=== PATIENT | female | born 1985 | race Caucasian/White ===

== ENCOUNTER 2016-11-29 16:53 | Outpatient (CLI) | payer MEDICAID ==
--- NOTE | 2016-11-29 17:14 | QN ---
Documentation Comment iup 20 weeks s/p fall and gash on head vss +FHT no ob synmptoms a/p iup 20 weeks to ER for head evaluation \ JENNIFER RIDER MD November 29, 2016 17:14
--- NOTE | 2016-11-29 17:22 | TRIAGE ---
OB Triage Datetime Report Generated by CPN: 11/29/2016 17:22 Datetime: 11/29/2016 16:40 Time of Arrival: 11/29/2016 16:40 Arrived By: Ambulance Arrived From: Home Chief Complaint: PT CAME IN VIA AMBULANCE BECAUSE SHE FAITED IN THE CAR WASH AND HIT HER HEAD IN T HE CONCRETE MAKING A LACERATION ON HER HEAD. BLOOD NOTED DOWN HER HEAD, NECK FACE AND BODY Movement: Present Contractions: Denies/Absent Rupture of Membranes: Denies Vaginal Discharge: Denies Recent Sexual Intercouse: Denies Abdominal Trauma: Not Applicable Additional Patient Complaints: NONE Time Provider Notified: 11/29/2016 17:10 Provider Notified: TERESO Initial Plan: NST THEN DOWN TO ER
[2016-11-29] MEDS ORDERED: ACET500C5 PO (20:19)
[2016-11-29] MEDS ORDERED: FER325 PO (20:19)
== END 2016-11-29 17:10 | disposition home or self-care (01) ==
LOC: OBT 16:53 → L-D 16:54 → OBT 17:10
PROVIDERS: ATTEND Obstetrics & Gynecology
DX: O26.892 Other specified pregnancy related conditions, second trimester (principal); W19.XXXA Unspecified fall, initial encounter; Y92.9 Unspecified place or not applicable; Z3A.20 20 weeks gestation of pregnancy
CPT/HCPCS: G0463

== ENCOUNTER 2016-11-29 17:15 | Emergency (ER) | payer MEDICAID, OTHER ==
[~2016-11-29] VITALS: Ht 154.9 cm; Wt 70.0 kg
[2016-11-29 17:18] VITALS: Ht 154.9 cm; Wt 70.0 kg
[2016-11-29] MEDS ORDERED: ONDANSETRON 4 MG INJ IV STA (18:08)
[2016-11-29] MEDS ORDERED: ACETAMINOPHEN 325 MG TAB PO ONE (18:30)
[2016-11-29] MEDS ORDERED: SOD CHLORIDE 0.9% 1,000 ML IV ONE (18:30)
[2016-11-29 19:09] LABS: ADD SCAN DIFF NO
[2016-11-29 19:12] LABS: BASOPHILS % 0.2 % (0.0-2.0); EOSINOPHILS % 0.1 % (0.0-7.0); HEMATOCRIT 29.6 % (37.0-47.0); LYMPHOCYTES # 1.3 10^3/ul (0.8-2.9); LYMPHOCYTES % 8.1 % (15.0-51.0); MEAN CORPUSCULAR HEMOGLOBIN 31.9 pg (29.0-33.0); MEAN CORPUSCULAR HGB CONC 33.8 g/dl (32.0-37.0); MEAN CORPUSCULAR VOLUME 94.6 fl (82.0-101.0); MEAN PLATELET VOLUME 9.7 fl (7.4-10.4); MONOCYTE # 0.7 10^3/ul (0.3-0.9); MONOCYTES % 4.5 % (0.0-11.0); NEUTROPHIL # 13.5 10^3/ul (1.6-7.5); NEUTROPHILS % 85.1 % (39.0-77.0); PLATELET COUNT 195 10^3/UL (140-415); RED BLOOD COUNT 3.13 10^6/ul (4.20-5.40); RED CELL DISTRIBUTION WIDTH 13.4 % (11.5-14.5); WHITE BLOOD COUNT 15.9 10^3/ul (4.8-10.8)
[2016-11-29 19:21] LABS: CHLORIDE 104 mmol/L (97-110); POTASSIUM 3.7 mmol/L (3.5-5.1); SODIUM 138 mmol/L (135-144)
[2016-11-29 19:23] LABS: CREATININE 0.55 mg/dl (0.44-1.00)
[2016-11-29 19:24] LABS: ANION GAP 14 (8-16); BLOOD UREA NITROGEN 11 mg/dl (7-20); CALCIUM 9.9 mg/dl (8.4-10.2); CARBON DIOXIDE 24 mmol/L (21-31); GLUCOSE 131 mg/dl (70-220)
[2016-11-29 19:36] LABS: TROPONIN-I < 0.012 ng/ml (0.00-0.12)
[2016-11-29] MEDS ORDERED: FER325 PO (20:19)
[2016-11-29] MEDS ORDERED: ACET500C5 PO (20:19)
--- NOTE | 2016-11-29 20:57 | ERD ---
ER Documentation Chief Complaint Date/Time DATE: 11/29/16 TIME: 20:45 Chief Complaint clear by obgyn, 21 weeks s/p syncope, has neck pain HPI 31-year-old female is brought in by EMS for one episode of syncope. Patient was standing in line at the store when she "passed out". She fell onto the floor, and hit her head in the fall. Her son was with her at the time, and reports that she was out for about 5 seconds. Patient reports 3 episodes of vomiting while in the ambulance. Patient is 21 weeks , but did not have any nausea vomiting during her prior to today. She is reporting pain in the right side of her head, and the right neck. Patient stated that she drinks very small amount of water usually. Denies fever or chills. Denies abdominal pain or diarrhea. Denies chest pain or palpitations. Denies shortness of breath. Denies pelvic pain or vaginal bleeding. Patient was cleared by labor delivery before sent to the ER. ROS All systems reviewed and are negative except as per history of present illness. Medications Home Meds Active Scripts Ferrous Sulfate* (Ferrous Sulfate*) 325 Mg Tabec, 325 MG PO TID, #30 TAB Prov:GAMAL FORD. COREMAKER MACHINE 11/29/16 Acetaminophen* (Tylophen*) 500 Mg Capsule, 1 CAP PO Q6H Y for PAIN AND OR ELEVATED TEMP, #20 CAP Prov:GAMAL FORD. COREMAKER MACHINE 11/29/16 PMhx/Soc Medical and Surgical Hx: pt denies Medical Hx Physical Exam Vitals Vital Signs Date Time Temp Pulse Resp B/P Pulse Ox O2 Delivery O2 Flow Rate FiO2 11/29/16 20:59 98.6 92 18 106/77 99 Room Air 11/29/16 17:18 98.1 76 18 116/70 99 Physical Exam General: Well-developed, well-nourished, conscious and coherent, in no distress Skin: Warm and dry without rash, good texture and turgor Head: Normocephalic, 1.5 cm laceration noted in the right parietal region, without step-off. Eyes: Sclera and conjunctivae normal; pupils equal, round, and reactive to light; extraocular movements are intact Neck: Supple without meningismus or adenopathy. Carotids are equal. Trachea midline. No bruits or JVD. Right sternocleidomastoid spasm noted. Chest: Normal AP diameter. Good expansion without retractions. Nontender. Lungs are clear to auscultate bilaterally with good tidal volume Heart: Regular rate and rhythm. No murmur, rub, or gallops heard Abdomen: Soft and nontender without masses, guarding, or rebound. Bowel sounds are active. No hepatosplenomegaly Back: Without spinal or CVA tenderness Pelvis: Nontender to palpation and stable to compression Extremities: Full range of motion. Good strength bilaterally. No clubbing, cyanosis, or edema. Peripheral pulses are intact. Sensation intact Neuro: Alert and oriented 4, GCS 15. Cranial nerves grossly intact. Motor and sensory exams nonfocal. Moves all extremities. Speech clear. Gait normal Result Diagram: 11/29/16184411/29/161844 Results 24 hrs Laboratory Tests Test 11/29/16 18:45 White Blood Count 15.910^3/ul Red Blood Count 3.1310^6/ul Hemoglobin 10.0g/dl Hematocrit 29.6% Mean Corpuscular Volume 94.6fl Mean Corpuscular Hemoglobin 31.9pg Mean Corpuscular Hemoglobin Concent 33.8g/dl Red Cell Distribution Width 13.4% Platelet Count 14222^3/UL Mean Platelet Volume 9.7fl Neutrophils % 85.1% Lymphocytes % 8.1% Monocytes % 4.5% Eosinophils % 0.1% Basophils % 0.2% Nucleated Red Blood Cells % 0.0/100WBC Neutrophils # 13.510^3/ul Lymphocytes # 1.310^3/ul Monocytes # 0.710^3/ul Eosinophils # 0.010^3/ul Basophils # 0.010^3/ul Nucleated Red Blood Cells # 0.010^3/ul Sodium Level 138mmol/L Potassium Level 3.7mmol/L Chloride Level 104mmol/L Carbon Dioxide Level 24mmol/L Anion Gap 14 Blood Urea Nitrogen 11mg/dl Creatinine 0.55mg/dl Glucose Level 131mg/dl Calcium Level 9.9mg/dl Troponin I < 0.012ng/ml Current Medications Medications (Trade) Dose Ordered Sig/Kel Route PRN Reason Start Time Stop Time Status Last Admin Dose Admin Sodium Chloride (NS) 1,000 ml @ 1,000 mls/hr Q1H ONCE IV 11/29/16 18:30 11/29/16 19:29 DC 11/29/16 18:46 Ondansetron HCl (Zofran Inj) 4 mg ONCE STAT IV 11/29/16 18:08 11/29/16 18:10 DC 11/29/16 18:45 Acetaminophen (Tylenol Tab) 650 mg ONCE ONCE PO 11/29/16 18:30 11/29/16 18:31 DC 11/29/16 18:45 Diphtheria/ Tetanus/Acell Pertussis (Adacel) 0.5 ml ONCE ONCE IM* 11/29/16 21:00 11/29/16 21:01 Procedures/MDM Well-appearing 31-year-old female presented ED with scalp laceration after one episode of syncope. EKG: Normal sinus rhythm, normal axis. No ST segment elevation or depression. No ectopic beats. No QT prolongation. T-wave inversion noted in lead V1 only, which may be due to lead placement. EKG read by Dr. Gupta. CBC shows mild leukocytosis of 15.9, and mild anemia with hemoglobin and hematocrit at 10.0 and 20.6, respectively. BMP negative, troponin negative. Patient syncope is likely due to combination of heat and dehydration. Low suspicion for seizure, hemorrhage, TN, or other Cardiologic causes. Low suspicion for stroke or TIA. Patient is sustained a scalp laceration to fall. However, I feel her risks of having intracranial great bleeding is low. Given the patient is , the risk from CT scan is high. Risks and benefits of CT scan explained to the patient. CT is not performed was joint decision making. Patient does show a mild physiological anemia due to . I will prescribe ferrous sulfate supplement for the patient. Patient advised to follow -up with her PCP or OB. Procedure note: laceration repair Verbal consent was obtained for the laceration repair. The wound was copiously irrigated. The area was explored under a bloodless field. No foreign body, deep structure or tendon involvement was noted. Closure was achieved with 3 vikas. Good cosmetic and hemostatic results were obtained with the closure. The wound was then cleaned and a dressing was applied. TDap given to the patient in the ED. Patient appears well, stable for discharge and outpatient management. Medical decision making shared with patient and family. Education provided to patient and family. Patient and family expressed understanding of the plan. Medications on discharge: Ferrous sulfate, Tylenol. Follow-up: Return to eating 2 days for wound check. Departure Diagnosis: Primary Impression: Syncope Syncope type: unspecified Qualified Code: R55 - Syncope, unspecified syncope type Additional Impressions: Scalp laceration Encounter type: initial encounter Qualified Code: S01.01XA - Scalp laceration, initial encounter Anemia affecting Condition: Stable Patient Instructions: What Is Syncope?, Laceration, Scalp Ref[facility] Usted se rodriguez hecho un examen mdico de control que le indica que no est en eric condicin que requiera tratamiento urgente en el Departamento de Emergencia. Un estudio ms profundo y el tratamiento de de la torre condicin pueden esperar sin ningn riesgo hasta que usted sea atendida/o en el consultorio de de la torre mdico o eric cl shivam. Es responsabilidad suya arreglar eric thuy para el seguimiento del greer. MANEJO DE CONDICIONES NO URGENTES EN EL FUTURO 1) Si usted tiene un mdico de atencin primaria: Usted debera llamar a de la torre mdico de atencin primaria antes de venir al departamento de emergencia. Despus de las horas de consultorio, de la torre doctor o de la torre asociado/a est disponible por telfono. El mdico o enfermero de néstor en el servicio telefnico puede asesorarle por thais medio para atender el problema, o greer contrario se puede programar eric thuy. 2) Si usted no tiene un mdico de atencin primaria: Llame al mdico o clnica de referencia que aparece abajo erlin las horas de consultorio para hacer eric thuy para que le vean. CLINICAS: [facility] [phone] [facility] [phone] [facility] [phone] [place] [phone] [facility] [facility] [phone] [address] [facility] [phone] [address] Additional Instructions: Regrese a estas instalaciones dentro de DOS WYATT para un examen de seguimiento.Regrese antes si de la torre condicin se empeora. SUTURE REMOVAL:CONSULTE A DE LA TORRE MDICO PARA SACAR DE LA TORRE PUNTOS.PARA LA ANGELA 5-6 d as.EN OTRO LUGAR 7-10 wyatt.Follow up with your physician to remove the stitches: For Face wounds 5-7 days.For Elsewhere on the body 7-10 days. GAMAL FORD NP November 29, 2016 20:55
[2016-11-29 20:59] VITALS: BP 106/77; PULSE 92; RESP 18; TEMP 98.6
[2016-11-29] MEDS ORDERED: DIPHTH/TET/ACEL PERTUSS (ADULT) 0.5 ML VIAL IM* ONE (21:00)
== END 2016-11-29 21:19 | disposition home or self-care (01) ==
LOC: FTE 17:15
DX: O9A.212 Injury, poisoning and certain other consequences of external causes complicating pregnancy, second trimester (principal); S01.01XA Laceration without foreign body of scalp, initial encounter; O21.9 Vomiting of pregnancy, unspecified; M54.2 Cervicalgia; R55 Syncope and collapse; W18.39XA Other fall on same level, initial encounter; Y92.9 Unspecified place or not applicable; Z23 Encounter for immunization; Z3A.21 21 weeks gestation of pregnancy
CPT/HCPCS: 12001; 80048; 84484; 85025; 90715; 93005; J2405; J7030; Z7610; 36415; 90471; 96374

== ENCOUNTER 2017-04-06 09:44 | Inpatient (IN) | payer MEDICAID ==
[~2017-04-06] VITALS: Ht 152.4 cm; Wt 61.8 kg
[~2017-04-06 09:44] MED LIST: ACET500C5 PO; FER325 PO
[2017-04-06] MEDS ORDERED: DEXTROSE 5%-LR 1,000 ML IV SCH (10:42)
[2017-04-06 10:49] VITALS: BP 120/64; PULSE 80; RESP 18
[2017-04-06] MEDS ORDERED: PNV11TAB PO (10:53)
[2017-04-06] MEDS ORDERED: FERR236T PO (10:53)
[2017-04-06] MEDS ORDERED: OXYTOCIN 30 UNITS/LR 500 ML IV SCH (11:00)
[2017-04-06] MEDS ORDERED: MISOPROSTOL 200 MCG TAB PR PRN ×2 (11:00→18:30)
[2017-04-06] MEDS ORDERED: METHYLERGONOVINE 0.2 MG INJ IM PRN ×2 (11:00→18:30)
[2017-04-06] MEDS ORDERED: OXYTOCIN 30 UNITS/LR 500 ML IV PRN ×2 (11:00→18:30)
[2017-04-06] MEDS ORDERED: CEFAZOLIN 2 GM/50 ML (PMX) 50 ML IV SCH (11:00)
[2017-04-06] MEDS ORDERED: CARBOPROST 250 MCG INJ IM PRN ×2 (11:00→18:30)
[2017-04-06] MEDS: LACTATED RINGER'S 1,000 ML IV SCH ×2 (11:14→13:30)
[2017-04-06 12:02] LABS: BASOPHILS % 0.2 % (0.0-2.0); EOSINOPHILS # 0.1 10^3/ul (0.0-0.5); EOSINOPHILS % 0.7 % (0.0-7.0); HEMATOCRIT 37.2 % (37.0-47.0); HEMOGLOBIN 12.6 g/dl (12.0-16.0); LYMPHOCYTES # 1.5 10^3/ul (0.8-2.9); LYMPHOCYTES % 12.4 % (15.0-51.0); MEAN CORPUSCULAR HEMOGLOBIN 31.7 pg (29.0-33.0); MEAN CORPUSCULAR HGB CONC 33.9 g/dl (32.0-37.0); MEAN CORPUSCULAR VOLUME 93.7 fl (82.0-101.0); MEAN PLATELET VOLUME 10.7 fl (7.4-10.4); MONOCYTE # 1.1 10^3/ul (0.3-0.9); MONOCYTES % 9.1 % (0.0-11.0); NEUTROPHIL # 9.1 10^3/ul (1.6-7.5); NEUTROPHILS % 76.8 % (39.0-77.0); PLATELET COUNT 184 10^3/UL (140-415); RED BLOOD COUNT 3.97 10^6/ul (4.20-5.40); RED CELL DISTRIBUTION WIDTH 12.9 % (11.5-14.5); WHITE BLOOD COUNT 11.8 10^3/ul (4.8-10.8)
[2017-04-06 12:12] LABS: INR 0.96; PROTIME 12.8 Sec (12.2-14.2)
[2017-04-06 12:13] LABS: PARTIAL THROMBOPLASTIN TIME 31.3 Sec (25.0-35.0)
[2017-04-06] MEDS ORDERED: CITRIC ACID/NA CITRATE 30 ML CUP ONE (13:35)
[2017-04-06] MEDS ORDERED: METOCLOPRAMIDE 10 MG INJ ONE (13:57)
[2017-04-06] MEDS ORDERED: morphine SULFATE/PF (10 MG/10 ML) INJ ONE (13:57)
[2017-04-06] MEDS ORDERED: KETOROLAC 30 MG INJ ONE (13:57)
[2017-04-06] MEDS ORDERED: PHENYLephrine (100 MCG/ML) 5ML SYG ONE (14:03)
--- NOTE | 2017-04-06 14:05 | HP ---
Date/Time of Note Date/Time of Note DATE: 04/06/17 TIME: 13:58 OB - History Hx of Present Free Text/Dictation 31 years old female 2 para 1 EDC of July 10, 2017 [facility] a history of previous undergo repeat section this patient has been under the care of the [place] [facility] her complicated with gestational diabetes diet control no medical or surgical conditions reported on the patient's record. Chief Complaint: 31 years old female history of previous C- section Estimated Due Date: Apr 10, 2017 : 2 Para: 1 Care: Good Care Ultrasounds: Normal mid trimester US Obstetrical Complications: Gestational Diabetes Medical Complications: None Past Family/Social History * Past Medical, Surgical, Family and Obstetric Histories reviewed from chart. Rubella: immune RPR/VDRL: Negative GBS Status: Negative HBsAG: Negative OB Admission Exam Vital Signs Vital Signs Vital Signs Date Time Temp Pulse Resp B/P Pulse Ox O2 Delivery O2 Flow Rate FiO2 04/06/17 10:49 98.6 80 18 120/64 99 Room Air Physical Exam HEENT: WNL Heart: Rhythm Normal Lungs: Clear, Equal Abdomen: WNL Extremities: Normal Reflexes: Normal Cervical Dilatation: None Membranes: Intact Heart Rate: 130's Accelerations: Accelerations Present Decelerations: No Decelerations Varibility: Moderate Contractions on Admission: >10 Minutes Apart Intensity: Mild Last 72 hours Lab Results CBC & BMP 04/06/17 10:15 OB Assessment/Plan Reason for admission: other (31 years old history of previous admitted at 39 weeks and 4 days for repeat ) Plan: Other (31 years old female EDC April 10, 2017 history of previous admitted for 9 weeks and 4 day repeat complication of the surgery loading but not limited to bowel and bladder injury infection wound hematoma discussed with the patient would like to proceed with the procedure) XAVI GARCIA MD Apr 06, 2017 14:05
[2017-04-06] MEDS ORDERED: OXYTOCIN 30 UNITS/LR 500 ML IV ONE (14:39)
--- NOTE | 2017-04-06 15:02 | OPR ---
Operative Report Planned Procedure Free Text/Dictation 31 years old female 2 para 1 history of previous with a EDC of April 10, 2017 admitted to [facility] at 39 weeks and 4 days repeat Procedure date Apr 06, 2017 Procedure(s) Repeat transverse low cervical section Performed by see signature line Assisting provider: KIT GOTTLIEB MD Anesthesiologist: CANDE LUX MD Pre-procedure diagnosis 39 weeks 4 days history of previous Anesthesia Type: spinal Procedure Description Under satisfactory [spinal] anesthesia, patient prepped and draped and placed in a supine position, tilted to the left. Pfannenstiel incision was made, carried through the subcutaneous tissue. Bleeders brought under control with electrocautery. Fascia incised to the length of the incision. Rectus muscles from the fascia, divided midline. Peritoneum exposed, entered through a transverse incision. Exploration of abdomen revealed gravid uterus normal- appearing tubes and ovaries. Bladder flap was developed. Transverse incision was made in the lower segment of the uterus. Amniotic sac ruptured. [Clear] amniotic fluid noted light baby girl was delivered from unengaged vertex. [] Nasal oropharyngeal suction was performed. The baby was handed to the team for immediate attention. placenta delivered manually intact. Uterine cavity cleaned with wet sponge and drainage established. Uterus closed in 2 layers using Vicryl No. 1 in continuous fashion. Peritoneal cavity irrigated with warm saline. Sponge, needle and instrument count reported to be correct. Abdominal peritoneum closed with [0 chromic catgut] continuously. Rectus muscle approximated with [few interrupted 2-0 chromic catgut]. Fascia closed with [#1 PDS] subcutaneous tissue approximated with few interrupted 2-0 chromic catgut, skin closed with N SORB. Estimated blood loss 600m Urine bag contained [200]mL of clear urine ,patient tolerated procedure well transferred to recovery room in a good condition. Post-Procedure Findings: Live Baby girl got 8 and 9 Estimated blood loss: other (600 cc) Specimen(s): no Grafts/Implants: no Complication(s): no Pt Condition post procedure: stable Physician Certification I, the undersigned physician, hereby certify that I have discussed the procedure described in this consent form with this patient (or the patient's legal field service representative), including: * The risk and benefits of the procedure; * Any adverse reactions that may reasonably be expected to occur; * Any alternative efficacious methods of treatment which may be medically viable ; * The potential problems that may occur during recuperation; * Potential for blood transfusion and associated risks/benefits; and * Any research or economic interest I may have regarding this treatment. I further certify that the patient/legally responsible person was encouraged to ask question and that all questions were answered. XAVI GARCIA MD Apr 06, 2017 14:59
[2017-04-06] MEDS ORDERED: HYDROmorphONE 1 MG/ML SYG IV PRN ×3 (17:00)
[2017-04-06] MEDS ORDERED: DIPHENHYDRAMINE 50 MG INJ IV PRN ×2 (17:00)
[2017-04-06] MEDS ORDERED: HYDROmorphONE (0.2 MG/ML) 10ML SYG IV PRN ×3 (17:00)
[2017-04-06] MEDS ORDERED: MEPERIDINE 25 MG INJ IV PRN (17:00)
[2017-04-06] MEDS ORDERED: ONDANSETRON 4 MG INJ IV PRN ×2 (17:00)
[2017-04-06] MEDS ORDERED: METOCLOPRAMIDE 10 MG INJ IV PRN (17:00)
[2017-04-06] MEDS ORDERED: NALOXONE (0.4 MG/ML) INJ IV PRN (17:00)
[2017-04-06 17:30] VITALS: BP 135/84; PULSE 71; RESP 18
[2017-04-06 18:00] VITALS: BP 140/76; PULSE 62; RESP 18
[2017-04-06] MEDS ORDERED: CEFAZOLIN 1 GM/50 ML (PMX) 50 ML IVPB SCH (18:30)
[2017-04-06 18:46] VITALS: BP 137/72; PULSE 62; RESP 18
[2017-04-06 19:25] VITALS: BP 134/65; PULSE 57; RESP 18
[2017-04-06] MEDS ORDERED: CEPASTAT LOZENGE MT PRN (21:30)
[2017-04-06] MEDS: SENNA/DOCUSATE NA (8.6MG/50MG) TAB PO SCH (22:00)
[2017-04-06] MEDS: OXYTOCIN 30 UNITS/LR 500 ML IV SCH (22:04)
[2017-04-07] MEDS: OXYTOCIN 30 UNITS/LR 500 ML IV SCH ×2 (02:07→06:10)
[2017-04-07 03:50] VITALS: BP 100/56; PULSE 75; RESP 20
[2017-04-07] MEDS: KETOROLAC 30 MG INJ IV PRN ×2 (05:30→13:43)
[2017-04-07] MEDS: IBUPROFEN 600 MG TAB PO SCH ×4 (06:00→23:32)
[2017-04-07 08:00] VITALS: BP 116/54; PULSE 75; RESP 19
[2017-04-07 09:16] LABS: BASOPHILS % 0.2 % (0.0-2.0); EOSINOPHILS # 0.1 10^3/ul (0.0-0.5); EOSINOPHILS % 0.5 % (0.0-7.0); HEMATOCRIT 30.7 % (37.0-47.0); HEMOGLOBIN 10.4 g/dl (12.0-16.0); LYMPHOCYTES # 1.4 10^3/ul (0.8-2.9); LYMPHOCYTES % 10.8 % (15.0-51.0); MEAN CORPUSCULAR HGB CONC 33.9 g/dl (32.0-37.0); MEAN CORPUSCULAR VOLUME 91.6 fl (82.0-101.0); MEAN PLATELET VOLUME 10.2 fl (7.4-10.4); MONOCYTE # 0.8 10^3/ul (0.3-0.9); MONOCYTES % 5.8 % (0.0-11.0); NEUTROPHIL # 10.7 10^3/ul (1.6-7.5); NEUTROPHILS % 82.2 % (39.0-77.0); PLATELET COUNT 161 10^3/UL (140-415); RED BLOOD COUNT 3.35 10^6/ul (4.20-5.40); RED CELL DISTRIBUTION WIDTH 12.9 % (11.5-14.5)
[2017-04-07 12:00] VITALS: BP 115/68; PULSE 76; RESP 18
--- NOTE | 2017-04-07 12:07 | PN ---
Date/Time of Note Date/Time of Note DATE: 04/07/17 TIME: 12:05 Assessment/Plan VTE Prophylaxis VTE Prophylaxis Intervention: ambulation Lines/Catheters IV Catheter Type (from Nrsg): Peripheral IV Subjective 24 Hr Interval Summary Free Text/Dictation anesthesi anote: A 31 year old female s/p [id number] spinal POD#1 is fine, pain is controlled, no n/v, itching, headache, back pain, no inflammation pr irritation on back. care per surgery Exam/Review of Systems Vital Signs Vitals Vital Signs Date Time Temp Pulse Resp B/P Pulse Ox O2 Delivery O2 Flow Rate FiO2 04/07/17 08:00 98.6 75 19 116/54 Room Air 04/06/17 10:49 99 Intake and Output 04/06/17 04/06/17 04/07/17 15:00 23:00 07:00 Intake Total 2750 ml 725 ml 1000 ml Output Total 1120 ml 475 ml 600 ml Balance 1630 ml 250 ml 400 ml Results Result Diagram: 04/07/17 0847 04/06/17 1015 Results 24 hrs Laboratory Tests Test 04/06/17 15:59 04/07/17 08:47 Bedside Glucose 79 White Blood Count 13.0 H Red Blood Count 3.35 L Hemoglobin 10.4 L Hematocrit 30.7 L Mean Corpuscular Volume 91.6 Mean Corpuscular Hemoglobin 31.0 Mean Corpuscular Hemoglobin Concent 33.9 Red Cell Distribution Width 12.9 Platelet Count 161 Mean Platelet Volume 10.2 Neutrophils % 82.2 H Lymphocytes % 10.8 L Monocytes % 5.8 Eosinophils % 0.5 Basophils % 0.2 Nucleated Red Blood Cells % 0.0 Neutrophils # 10.7 H Lymphocytes # 1.4 Monocytes # 0.8 Eosinophils # 0.1 Basophils # 0.0 Nucleated Red Blood Cells # 0.0 Medications Medications Current Medications Naloxone HCl (Narcan) 0.1 mg Q2M PRN IV FOR RESP RATE 8 OR LESS; Start at 17:00; Stop 04/07/17 at 16:59 Ketorolac Tromethamine (Toradol) 30 mg Q6H PRN IV PAIN Last administered on t 05:30; Admin Dose 30 MG; Start 04/06/17 at 17:00; Stop 04/07/17 at 16:59 Hydromorphone HCl (Dilaudid) 1 mg Q3H PRN IV BREAKTHROUGH PAIN; Start 04/06/17 at 17:00; Stop 04/07/17 at 16:59 Hydromorphone HCl (Dilaudid) 0.2 mg Q3H PRN IV PAIN LEVEL 1-5; Start 04/06/17 at 17:00; Stop 04/07/17 at 16:59 Hydromorphone HCl (Dilaudid) 0.4 mg Q3H PRN IV PAIN LEVEL 6-10; Start 04/06/17 at 17:00; Stop 04/07/17 at 16:59 Diphenhydramine HCl (Benadryl) 25 mg Q6H PRN IV ITCHING; Start 04/06/17 at 17: 00; Stop 04/07/17 at 16:59 Ondansetron HCl (Zofran Inj) 4 mg Q6H PRN IV NAUSEA AND/OR VOMITING; Start at 17:00; Stop 04/07/17 at 16:59 Acetaminophen/ Hydrocodone Bitart ([place] (5/325)) 1 tab Q4H PRN PO PAIN LEVEL 4 -6; Start 04/07/17 at 17:00 Acetaminophen/ Hydrocodone Bitart ([place] (5/325)) 2 tab Q4H PRN PO PAIN LEVEL 7 -10; Start 04/07/17 at 17:00 Oxycodone/ Acetaminophen (Percocet (5/ 325)) 1 tab Q4H PRN PO PAIN LEVEL 4-6; Start 04/07/17 at 17:00 Oxycodone/ Acetaminophen (Percocet (5/ 325)) 2 tab Q4H PRN PO PAIN LEVEL 7-10; Start 04/07/17 at 17:00 Ibuprofen (Motrin) 600 mg Q6 PO ; Start 04/07/17 at 06:00 Simethicone (Mylicon) 160 mg Q8H PRN PO DISTENSION/GAS/BLOATING; Start at 18:30 Senna/Docusate Sodium (Senokot-S) 1 tab BID PO Last administered on 04/06/17t 22:00; Admin Dose 1 TAB; Start 04/06/17 at 21:00 Diphtheria/ Tetanus/Acell Pertussis 0.5 ml 0.5 ml ONCE ONCE IM* ; Start at 09:00; Stop 04/09/17 at 09:01 Oxytocin/Lactated Ringer's 500 ml @ 0 mls/hr ONCE PRN IV For Hemorrhage Management; Start 04/06/17 at 18:30 Methylergonovine Maleate (Methergine) 0.2 mg ONCE PRN IM VAGINAL BLEEDING; Start 04/06/17 at 18:30 Carboprost Tromethamine (Hemabate) 250 mcg ONCE PRN IM VAGINAL BLEEDING; Start 04/06/17 at 18:30 Misoprostol 1000 mcg 1,000 mcg ONCE PRN OK VAGINAL BLEEDING; Start 04/06/17 at 18:30 Oxytocin/Lactated Ringer's 500 ml @ 125 mls/hr Q4H IV Last administered on 06:10; Admin Dose 125 MLS/HR; Start 04/06/17 at 18:11 Phenol (Cepastat Lozenge) 1 lozenge Q1H PRN MT SORE THROAT Last administered on 04/07/17 03:25; Admin Dose 1 LOZENGE; Start 04/06/17 at 21:30 Influenza Virus Vaccine (Fluzone) 0.5 ml ONCE ONCE IM* ; Start 04/08/17 at 09:00 ; Stop 04/08/17 at 09:01 CANDE LUX MD Apr 07, 2017 12:07
[2017-04-07] MEDS: SENNA/DOCUSATE NA (8.6MG/50MG) TAB PO SCH ×2 (13:42→20:59)
[2017-04-07 16:00] VITALS: BP 107/52; PULSE 82; RESP 20
[2017-04-07] MEDS ORDERED: HYDROCODONE/APAP (5/325) TAB PO PRN ×2 (17:00)
[2017-04-07] MEDS ORDERED: OXYCODONE/ACETAMINOPHEN (5/325) TAB PO PRN (17:00)
[2017-04-07] MEDS ORDERED: INFLUENZA VIRUS VACCINE 0.5 ML (DISPENSING) IM* ONE (17:00)
[2017-04-07] MEDS ORDERED: INFLUENZA VIRUS VACCINE 0.5 ML SYG IM* ONE (17:30)
--- NOTE | 2017-04-07 19:42 | PN ---
Date/Time of Note Date/Time of Note DATE: 04/07/17 TIME: 19:40 OB Subjective Subjective Subjective Post C Section day 1 Patient is doing well, Ambulatory She is afebrile Abdomen is soft , Fundus is firm Moderate amount of lochia Breasts are soft, Nipples are intact No calf tenderness. Incision is healing well. Laboratory Tests Test 04/07/17 08:47 White Blood Count 13.010^3/ul Red Blood Count 3.3510^6/ul Hemoglobin 10.4g/dl Hematocrit 30.7% Mean Corpuscular Volume 91.6fl Mean Corpuscular Hemoglobin 31.0pg Mean Corpuscular Hemoglobin Concent 33.9g/dl Red Cell Distribution Width 12.9% Platelet Count 72257^3/UL Mean Platelet Volume 10.2fl Neutrophils % 82.2% Lymphocytes % 10.8% Monocytes % 5.8% Eosinophils % 0.5% Basophils % 0.2% Nucleated Red Blood Cells % 0.0/100WBC Neutrophils # 10.710^3/ul Lymphocytes # 1.410^3/ul Monocytes # 0.810^3/ul Eosinophils # 0.110^3/ul Basophils # 0.010^3/ul Nucleated Red Blood Cells # 0.010^3/ul Current Medications Medications (Trade) Dose Ordered Sig/Kel Route PRN Reason Start Time Stop Time Status Last Admin Dose Admin Lactated Ringer's 1,000 ml @ 125 mls/hr Q8H IV 04/06/17 10:42 04/06/17 18:16 DC 04/06/17 13:30 Cefazolin Sodium/ Dextrose 50 ml @ 100 mls/hr ONCE IV 04/06/17 11:00 04/06/17 18:16 DC Oxytocin/Lactated Ringer's 500 ml @ 125 mls/hr ONCE IV 04/06/17 11:00 04/06/17 18:16 DC 04/06/17 17:26 Oxytocin/Lactated Ringer's 500 ml @ 0 mls/hr ONCE PRN IV For Hemorrhage Management 04/06/17 11:00 04/06/17 18:16 DC Methylergonovine Maleate (Methergine) 0.2 mg ONCE PRN IM VAGINAL BLEEDING 04/06/17 11:00 04/06/17 18:16 DC Carboprost Tromethamine (Hemabate) 250 mcg ONCE PRN IM VAGINAL BLEEDING 04/06/17 11:00 04/06/17 18:16 DC Misoprostol 1000 mcg 1,000 mcg ONCE PRN GA VAGINAL BLEEDING 04/06/17 11:00 04/06/17 18:16 DC Dextrose/Lactated Ringer's (D5-Lr) 1,000 ml @ 125 mls/hr Q8H IV 04/06/17 10:42 04/06/17 18:16 DC Citric Acid/ Sodium Citrate (Bicitra) 30 ml STK-MED ONCE .ROUTE 04/06/17 13:35 04/06/17 13:36 DC Morphine Sulfate (Duramorph) 10 mg STK-MED ONCE .ROUTE 04/06/17 13:57 04/06/17 13:58 DC Metoclopramide HCl (Reglan) 10 mg STK-MED ONCE .ROUTE 04/06/17 13:57 04/06/17 13:58 DC Ketorolac Tromethamine (Toradol) 30 mg STK-MED ONCE .ROUTE 04/06/17 13:57 04/06/17 13:58 DC Phenylephrine HCl 500 mcg 500 mcg STK-MED ONCE .ROUTE 04/06/17 14:03 04/06/17 14:04 DC Oxytocin/Lactated Ringer's 500 ml @ ud STK-MED ONCE IV 04/06/17 14:39 04/06/17 14:40 DC Hydromorphone HCl (Dilaudid (Rec)) 0.2 mg PACU ORDER PRN IV MILD PAIN LEVEL 1-3 04/06/17 17:00 04/06/17 17:55 DC Hydromorphone HCl (Dilaudid (Rec)) 0.4 mg PACU ORDER PRN IV MODERATE PAIN LEVEL 4-6 04/06/17 17:00 04/06/17 17:55 DC Hydromorphone HCl (Dilaudid (Rec)) 0.6 mg PACU ORDER PRN IV SEVERE PAIN LEVEL 7-10 04/06/17 17:00 04/06/17 17:55 DC Ondansetron HCl (Zofran Inj) 4 mg PACU ORDER PRN IV NAUSEA AND/OR VOMITING 04/06/17 17:00 04/06/17 17:55 DC Metoclopramide HCl (Reglan) 10 mg PACU ORDER PRN IV NAUSEA AND/OR VOMITING 04/06/17 17:00 04/06/17 17:55 DC Meperidine HCl (Demerol) 25 mg PACU ORDER PRN IV POST-OP RIGORS 04/06/17 17:00 04/06/17 17:55 DC Diphenhydramine HCl (Benadryl) 25 mg PACU ORDER PRN IV PRURITUS 04/06/17 17:00 04/06/17 17:55 DC Naloxone HCl (Narcan) 0.1 mg Q2M PRN IV FOR RESP RATE 8 OR LESS 04/06/17 17:00 04/07/17 16:59 DC Ketorolac Tromethamine (Toradol) 30 mg Q6H PRN IV PAIN 04/06/17 17:00 04/07/17 16:59 DC 04/07/17 13:43 Hydromorphone HCl (Dilaudid) 1 mg Q3H PRN IV BREAKTHROUGH PAIN 04/06/17 17:00 04/07/17 16:59 DC Hydromorphone HCl (Dilaudid) 0.2 mg Q3H PRN IV PAIN LEVEL 1-5 04/06/17 17:00 04/07/17 16:59 DC Hydromorphone HCl (Dilaudid) 0.4 mg Q3H PRN IV PAIN LEVEL 6-10 04/06/17 17:00 04/07/17 16:59 DC Diphenhydramine HCl (Benadryl) 25 mg Q6H PRN IV ITCHING 04/06/17 17:00 04/07/17 16:59 DC Ondansetron HCl (Zofran Inj) 4 mg Q6H PRN IV NAUSEA AND/OR VOMITING 04/06/17 17:00 04/07/17 16:59 DC Acetaminophen/ Hydrocodone Bitart ([place] (5/325)) 1 tab Q4H PRN PO PAIN LEVEL 4-6 04/07/17 17:00 Acetaminophen/ Hydrocodone Bitart ([place] (5/325)) 2 tab Q4H PRN PO PAIN LEVEL 7-10 04/07/17 17:00 04/07/17 17:41 Oxycodone/ Acetaminophen (Percocet (5/ 325)) 1 tab Q4H PRN PO PAIN LEVEL 4-6 04/07/17 17:00 Oxycodone/ Acetaminophen (Percocet (5/ 325)) 2 tab Q4H PRN PO PAIN LEVEL 7-10 04/07/17 17:00 Ibuprofen (Motrin) 600 mg Q6 PO 04/07/17 06:00 04/07/17 17:40 Simethicone (Mylicon) 160 mg Q8H PRN PO DISTENSION/GAS/BLOATING 04/06/17 18:30 04/07/17 13:43 Senna/Docusate Sodium (Senokot-S) 1 tab BID PO 04/06/17 21:00 04/07/17 13:42 Lanolin (Umc-L-Qkclng) 1 applic BEDSIDE MEDICATION PRN TOP BEDSIDE FOR NANI TO NIPPLES 04/06/17 18:30 Diphtheria/ Tetanus/Acell Pertussis 0.5 ml 0.5 ml ONCE ONCE IM* 04/09/17 09:00 04/09/17 09:01 Oxytocin/Lactated Ringer's 500 ml @ 0 mls/hr ONCE PRN IV For Hemorrhage Management 04/06/17 18:30 Methylergonovine Maleate (Methergine) 0.2 mg ONCE PRN IM VAGINAL BLEEDING 04/06/17 18:30 Carboprost Tromethamine (Hemabate) 250 mcg ONCE PRN IM VAGINAL BLEEDING 04/06/17 18:30 Misoprostol 1000 mcg 1,000 mcg ONCE PRN GA VAGINAL BLEEDING 04/06/17 18:30 Cefazolin Sodium 50 ml @ 100 mls/hr ONCE IVPB 04/06/17 18:30 04/06/17 18:59 DC 04/06/17 18:37 Oxytocin/Lactated Ringer's 500 ml @ 125 mls/hr Q4H IV 04/06/17 18:11 04/07/17 06:10 Phenol (Cepastat Lozenge) 1 lozenge Q1H PRN MT SORE THROAT 04/06/17 21:30 04/07/17 03:25 Influenza Virus Vaccine (Fluzone) 0.5 ml ONCE ONCE IM* 04/08/17 09:00 04/08/17 09:01 Cancel Influenza Virus Vaccine (Fluzone) 0.5 ml ONCE ONCE IM* 04/07/17 17:00 04/07/17 17:01 Cancel Influenza Virus Vaccine (Fluzone) 0.5 ml ONCE ONCE IM* 04/07/17 17:30 04/07/17 17:31 DC 04/07/17 17:42 Breast feeding the new born. JADYN FAYE MD Apr 07, 2017 19:42
[2017-04-07 19:50] VITALS: BP 111/56; PULSE 66; RESP 18
[2017-04-07] MEDS: LANOLIN 7 GM TUBE TOP PRN (23:32)
[2017-04-08 04:05] VITALS: BP 114/59; PULSE 69; RESP 20
[2017-04-08] MEDS: IBUPROFEN 600 MG TAB PO SCH ×4 (05:24→23:46)
[2017-04-08 07:46] VITALS: BP 130/63; PULSE 63; RESP 18
[2017-04-08] MEDS: SENNA/DOCUSATE NA (8.6MG/50MG) TAB PO SCH ×2 (09:00→21:20)
[2017-04-08] MEDS ORDERED: INFLUENZA VIRUS VACCINE 0.5 ML (DISPENSING) IM* ONE (09:00)
[2017-04-08 16:00] VITALS: BP 127/60; PULSE 62; RESP 18
[2017-04-08] MEDS: OXYCODONE/ACETAMINOPHEN (5/325) TAB PO PRN (17:44)
[2017-04-08 19:50] VITALS: BP 124/60; PULSE 60; RESP 18
[2017-04-09 04:00] VITALS: BP 113/59; PULSE 71; RESP 20
[2017-04-09] MEDS: IBUPROFEN 600 MG TAB PO SCH ×2 (05:28→12:56)
[2017-04-09 07:45] VITALS: BP 130/78; PULSE 74; RESP 18
[2017-04-09] MEDS ORDERED: DIPHTH/TET/ACEL PERTUSS (ADULT) 0.5 ML VIAL IM* ONE (09:00)
[2017-04-09] MEDS: SENNA/DOCUSATE NA (8.6MG/50MG) TAB PO SCH (09:03)
[2017-04-09] MEDS: OXYCODONE/ACETAMINOPHEN (5/325) TAB PO PRN (09:03)
--- NOTE | 2017-04-09 10:06 | PD.PPDC ---
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
--- NOTE | 2017-04-09 10:10 | DS ---
Date/Time of Note Date/Time of Note DATE: 04/09/17 TIME: 10:07 Discharge Summary Admission/Discharge Info Admit Date/Time Apr 06, 2017 at 09:44 Discharge Date/Time April 09, 2017 at 10 AM Patient Condition: Good Procedures Repeat Hx of Present Illness Term history of previous Hospital Course Satisfactory uneventful Home Meds Reported Medications Ferrous Gluconate (Iron) 236 Mg Tablet, 236 MG PO DAILY, TAB 04/06/17 [id number] ( 19) 1 Each Tablet, 1 TAB PO DAILY, TAB 04/06/17 Discontinued Scripts Ferrous Sulfate* (Ferrous Sulfate*) 325 Mg Tabec, 325 MG PO TID, #30 TAB Prov:GAMAL FORD NP 11/29/16 Acetaminophen* (Tylophen*) 500 Mg Capsule, 1 CAP PO Q6H Y for PAIN AND OR ELEVATED TEMP, #20 CAP Prov:GAMAL FORD. 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
[2017-04-09] MEDS: LANOLIN 7 GM TUBE TOP PRN (15:29)
[2017-04-09 15:30] VITALS: BP 126/76; PULSE 74; RESP 20
--- NOTE | 2017-04-09 20:43 | PN ---
Date/Time of Note Date/Time of Note DATE: 04/09/17 TIME: 20:41 OB Subjective Subjective Subjective March, Post C section day 2 Doing Well Afebrile Ambulatory Chest Clear Breasts are soft , Nipples are intact Abdomen is soft Fundus is firm Moderate amount of lochia Incision is clean ,No evidence of infection No calf tenderness No ankle edema Current Medications Medications (Trade) Dose Ordered Sig/Kel Route PRN Reason Start Time Stop Time Status Last Admin Dose Admin Lactated Ringer's 1,000 ml @ 125 mls/hr Q8H IV 04/06/17 10:42 04/06/17 18:16 DC 04/06/17 13:30 Cefazolin Sodium/ Dextrose 50 ml @ 100 mls/hr ONCE IV 04/06/17 11:00 04/06/17 18:16 DC Oxytocin/Lactated Ringer's 500 ml @ 125 mls/hr ONCE IV 04/06/17 11:00 04/06/17 18:16 DC 04/06/17 17:26 Oxytocin/Lactated Ringer's 500 ml @ 0 mls/hr ONCE PRN IV For Hemorrhage Management 04/06/17 11:00 04/06/17 18:16 DC Methylergonovine Maleate (Methergine) 0.2 mg ONCE PRN IM VAGINAL BLEEDING 04/06/17 11:00 04/06/17 18:16 DC Carboprost Tromethamine (Hemabate) 250 mcg ONCE PRN IM VAGINAL BLEEDING 04/06/17 11:00 04/06/17 18:16 DC Misoprostol 1000 mcg 1,000 mcg ONCE PRN [place] VAGINAL BLEEDING 04/06/17 11:00 04/06/17 18:16 DC Dextrose/Lactated Ringer's (D5-Lr) 1,000 ml @ 125 mls/hr Q8H IV 04/06/17 10:42 04/06/17 18:16 DC Citric Acid/ Sodium Citrate (Bicitra) 30 ml STK-MED ONCE .ROUTE 04/06/17 13:35 04/06/17 13:36 DC Morphine Sulfate (Duramorph) 10 mg STK-MED ONCE .ROUTE 04/06/17 13:57 04/06/17 13:58 DC Metoclopramide HCl (Reglan) 10 mg STK-MED ONCE .ROUTE 04/06/17 13:57 04/06/17 13:58 DC Ketorolac Tromethamine (Toradol) 30 mg STK-MED ONCE .ROUTE 04/06/17 13:57 04/06/17 13:58 DC Phenylephrine HCl 500 mcg 500 mcg STK-MED ONCE .ROUTE 04/06/17 14:03 04/06/17 14:04 DC Oxytocin/Lactated Ringer's 500 ml @ ud STK-MED ONCE IV 04/06/17 14:39 04/06/17 14:40 DC Hydromorphone HCl (Dilaudid (Rec)) 0.2 mg PACU ORDER PRN IV MILD PAIN LEVEL 1-3 04/06/17 17:00 04/06/17 17:55 DC Hydromorphone HCl (Dilaudid (Rec)) 0.4 mg PACU ORDER PRN IV MODERATE PAIN LEVEL 4-6 04/06/17 17:00 04/06/17 17:55 DC Hydromorphone HCl (Dilaudid (Rec)) 0.6 mg PACU ORDER PRN IV SEVERE PAIN LEVEL 7-10 04/06/17 17:00 04/06/17 17:55 DC Ondansetron HCl (Zofran Inj) 4 mg PACU ORDER PRN IV NAUSEA AND/OR VOMITING 04/06/17 17:00 04/06/17 17:55 DC Metoclopramide HCl (Reglan) 10 mg PACU ORDER PRN IV NAUSEA AND/OR VOMITING 04/06/17 17:00 04/06/17 17:55 DC Meperidine HCl (Demerol) 25 mg PACU ORDER PRN IV POST-OP RIGORS 04/06/17 17:00 04/06/17 17:55 DC Diphenhydramine HCl (Benadryl) 25 mg PACU ORDER PRN IV PRURITUS 04/06/17 17:00 04/06/17 17:55 DC Naloxone HCl (Narcan) 0.1 mg Q2M PRN IV FOR RESP RATE 8 OR LESS 04/06/17 17:00 04/07/17 16:59 DC Ketorolac Tromethamine (Toradol) 30 mg Q6H PRN IV PAIN 04/06/17 17:00 04/07/17 16:59 DC 04/07/17 13:43 Hydromorphone HCl (Dilaudid) 1 mg Q3H PRN IV BREAKTHROUGH PAIN 04/06/17 17:00 04/07/17 16:59 DC Hydromorphone HCl (Dilaudid) 0.2 mg Q3H PRN IV PAIN LEVEL 1-5 04/06/17 17:00 04/07/17 16:59 DC Hydromorphone HCl (Dilaudid) 0.4 mg Q3H PRN IV PAIN LEVEL 6-10 04/06/17 17:00 04/07/17 16:59 DC Diphenhydramine HCl (Benadryl) 25 mg Q6H PRN IV ITCHING 04/06/17 17:00 04/07/17 16:59 DC Ondansetron HCl (Zofran Inj) 4 mg Q6H PRN IV NAUSEA AND/OR VOMITING 04/06/17 17:00 04/07/17 16:59 DC Acetaminophen/ Hydrocodone Bitart ([place] (5/325)) 1 tab Q4H PRN PO PAIN LEVEL 4-6 04/07/17 17:00 04/09/17 16:51 DC Acetaminophen/ Hydrocodone Bitart ([place] (5/325)) 2 tab Q4H PRN PO PAIN LEVEL 7-10 04/07/17 17:00 04/09/17 16:51 DC 04/07/17 17:41 Oxycodone/ Acetaminophen (Percocet (5/ 325)) 1 tab Q4H PRN PO PAIN LEVEL 4-6 04/07/17 17:00 04/09/17 16:51 DC 04/09/17 09:03 Oxycodone/ Acetaminophen (Percocet (5/ 325)) 2 tab Q4H PRN PO PAIN LEVEL 7-10 04/07/17 17:00 04/09/17 16:51 DC 04/08/17 08:55 Ibuprofen (Motrin) 600 mg Q6 PO 04/07/17 06:00 04/09/17 16:51 DC 04/09/17 12:56 Simethicone (Mylicon) 160 mg Q8H PRN PO DISTENSION/GAS/BLOATING 04/06/17 18:30 04/09/17 16:51 DC 04/07/17 13:43 Senna/Docusate Sodium (Senokot-S) 1 tab BID PO 04/06/17 21:00 04/09/17 16:51 DC 04/09/17 09:03 Lanolin (Oxq-I-Akhnve) 1 applic BEDSIDE MEDICATION PRN TOP BEDSIDE FOR NANI TO NIPPLES 04/06/17 18:30 04/09/17 16:51 DC 04/09/17 15:29 Diphtheria/ Tetanus/Acell Pertussis 0.5 ml 0.5 ml ONCE ONCE IM* 04/09/17 09:00 04/09/17 09:01 DC Oxytocin/Lactated Ringer's 500 ml @ 0 mls/hr ONCE PRN IV For Hemorrhage Management 04/06/17 18:30 04/09/17 16:51 DC Methylergonovine Maleate (Methergine) 0.2 mg ONCE PRN IM VAGINAL BLEEDING 04/06/17 18:30 04/09/17 16:51 DC Carboprost Tromethamine (Hemabate) 250 mcg ONCE PRN IM VAGINAL BLEEDING 04/06/17 18:30 04/09/17 16:51 DC Misoprostol 1000 mcg 1,000 mcg ONCE PRN [place] VAGINAL BLEEDING 04/06/17 18:30 04/09/17 16:51 DC Cefazolin Sodium 50 ml @ 100 mls/hr ONCE IVPB 04/06/17 18:30 04/06/17 18:59 DC 04/06/17 18:37 Oxytocin/Lactated Ringer's 500 ml @ 125 mls/hr Q4H IV 04/06/17 18:11 04/07/17 23:47 DC 04/07/17 06:10 Phenol (Cepastat Lozenge) 1 lozenge Q1H PRN [place] SORE THROAT 04/06/17 21:30 04/09/17 16:51 DC 04/07/17 03:25 Influenza Virus Vaccine (Fluzone) 0.5 ml ONCE ONCE IM* 04/08/17 09:00 04/08/17 09:01 Cancel Influenza Virus Vaccine (Fluzone) 0.5 ml ONCE ONCE IM* 04/07/17 17:00 04/07/17 17:01 Cancel Influenza Virus Vaccine (Fluzone) 0.5 ml ONCE ONCE IM* 04/07/17 17:30 04/07/17 17:31 DC 04/07/17 17:42 New born is doing well, Breast feeding FOROOHAR,HESHMAT MD Apr 09, 2017 20:43
== END 2017-04-09 16:51 | disposition home or self-care (01) | DRG 766 ==
LOC: L-D 09:44 → PP1 17:53
PROVIDERS: ADMIT Obstetrics & Gynecology; ATTEND Obstetrics & Gynecology
PROC: 10D00Z1 Extraction of Products of Conception, Low, Open Approach (ICD-10-PCS; principal; 2017-04-06 12:30)
DX: O34.219 Maternal care for unspecified type scar from previous cesarean delivery (principal); O24.419 Gestational diabetes mellitus in pregnancy, unspecified control; Z37.0 Single live birth; Z3A.39 39 weeks gestation of pregnancy
CPT/HCPCS: 82947; 82962; 85025; 85610; 85730; 86592; 86850; 86900; 86901; 90686; 90715; 99464; J0690; J1885; J2274; J2370; J2590; J2765; J7120; J7121